=== PATIENT | female | born 1990 | race Caucasian/White ===

== ENCOUNTER 2023-07-24 10:30 | Outpatient (CLI) | payer OTHER ==
--- NOTE | 2023-07-24 12:04 | XRAY Report ---
PROCEDURE: Shoulder 2+V RT INDICATIONS: PAIN IN RIGHT SHOULDER TECHNIQUE: 3 views of the shoulder were acquired. COMPARISON: None. FINDINGS: Bones: No fractures or dislocations. No suspicious bony lesions. Visualized ribs appear intact. Soft tissues: No suspicious soft tissue calcifications. The visualized lungs are within normal limi ts. IMPRESSION: No acute bony abnormality. If pain persists with conservative management, consider repeat x-ray in 10 -14 days or cross-sectional imaging. Reviewed by: Mich Saravia MD on 07/24/2023 12:03 PM PDT Approved by: Mich Saravia MD on 07/24/2023 12:03 PM PDT Station ID: [id number]
== END 2023-07-24 10:45 | disposition home or self-care (01) ==
LOC: DI.N 10:30
PROVIDERS: ATTEND Nurse Practitioner
DX: M25.511 Pain in right shoulder (principal)

== ENCOUNTER 2023-08-07 11:45 | Outpatient (CLI) | payer OTHER ==
[2023-08-07 22:21] LABS: CHLAMYDIA TRACHOMATIS DNA NEGATIVE (NEGATIVE); NEISSERIA GONORRHOEAE DNA NEGATIVE (NEGATIVE)
[2023-08-07 23:08] LABS: TRICHOMONAS VAGINALIS DNA POSITIVE (NEGATIVE)
[2023-08-09 05:08] LABS: RPR Non Reactive (Non Reactive)
[2023-08-10 01:06] LABS: HIV SCREEN 4TH GENERATION Non Reactive (Non Reactive)
[2023-08-10 10:08] LABS: HCV AB Non Reactive (Non Reactive)
== END 2023-08-07 12:00 | disposition home or self-care (01) ==
LOC: LAB.N 11:45
PROVIDERS: ATTEND Physician Assistant Medical
DX: Z11.3 Encounter for screening for infections with a predominantly sexual mode of transmission (principal)
CPT/HCPCS: 36415; 86592; 86695; 86696; 86803; 87389; 87491; 87591; 87661